=== PATIENT | male | born 1975 ===

== ENCOUNTER 2017-02-25 00:05 | Emergency (ER) | payer SELFPAY ==
[2017-02-25] MEDS ORDERED: Sodium Chloride 0.9% 1,000 ML IV STA ×2 (00:44→02:18)
--- NOTE | 2017-02-25 00:58 | ED PDOC ---
Lower Extremity Pain/Injury Time Seen by Provider: 02/25/17 00:27 Chief Complaint (Nursing): Chest Pain Chief Complaint (Provider): Numbness to bl feet History Per: Patient History/Exam Limitations: no limitations Onset/Duration Of Symptoms: Days Current Symptoms Are (Timing): Still Present Additional Complaint(s): The patient is a 41yo male, no known past medical history, presents to the ED for evaluation of bilateral lower extremity numbness, present for the past month , with associated chest tightness earlier today. Patient reports presenting today because he is concerned his symptoms are indicative of diabetes. He denies any other medical complaints. Surgical history: Right ear polyp removal Past Medical History Reviewed: Historical Data, Nursing Documentation, Vital Signs Vital Signs: Last Vital Signs Temp 97.8 F 02/25/17 00:25 Pulse 86 02/25/17 00:25 Resp 16 02/25/17 00:25 BP 124/68 02/25/17 00:25 Pulse Ox 98 02/25/17 00:25 - Medical History PMH: No Chronic Diseases - Surgical History Other surgeries: polyp removal from right ear - Family History Family History: States: Diabetes - Social History Current smoker - smoking cessation education provided: No Alcohol: None Drugs: Denies - Home Medications Home Medications: Ambulatory Orders Medication Instructions Recorded MetFORMIN [glucoPHAGE] 1,000 mg PO BID #14 tab 02/25/17 - Allergies Allergies/Adverse Reactions: Allergies Allergy/AdvReac Type Severity Reaction Status Date / Time No Known Allergies Allergy Verified 02/25/17 00:24 Review of Systems ROS Statement: Except As Marked, All Systems Reviewed And Found Negative Cardiovascular: Positive for: Chest Pain (chest tightness) Musculoskeletal: Positive for: Other (bilateral lower extremity weakness) Physical Exam - Reviewed Nursing Documentation Reviewed: Yes Vital Signs Reviewed: Yes - Physical Exam Appears: Positive for: Well, Non-toxic, No Acute Distress Head Exam: Positive for: ATRAUMATIC, NORMAL INSPECTION, NORMOCEPHALIC Skin: Positive for: Normal Color, Warm, DRY Eye Exam: Positive for: Normal appearance Neck: Positive for: Normal, Supple Cardiovascular/Chest: Positive for: Regular Rate, Rhythm Respiratory: Positive for: Normal Breath Sounds. Negative for: Respiratory Distress Extremity: Positive for: Normal ROM. Negative for: Pedal Edema, Calf Tenderness , Deformity, Swelling Neurologic/Psych: Positive for: Alert, Oriented. Negative for: Motor/Sensory Deficits - Laboratory Results Result Diagrams: 02/25/17 01:13 02/25/17 01:13 - ECG O2 Sat by Pulse Oximetry: 98 (RA) Pulse Ox Interpretation: Normal Medical Decision Making Medical Decision Making: Time: 39 Impression: 41y/o male with bilateral foot numbness and hyperglycemia per accucheck Plan: -- Labs -- IV Fluids -- EKG Reassess Labs reviewed show no clinically significant abnormalities with exception of elevated blood glucose; Patient blood glucose improved sig after IV fluids and Metformin. Pt presentation c/w withy new onset DM. All results and significance explained to patient who will follow up in clinic in 2 days. Patoient discharged on Metformin. Dx New inset DM Stable Scribe Attestation: Documented by Maryellen Chen acting as a scribe for Roger Garcia MD. Provider Attestation: All medical record entries made by the Scribe were at my direction and personally dictated by me. I have reviewed the chart and agree that the record accurately reflects my personal performance of the history, physical exam, medical decision making, and the department course for this patient. I have also personally directed, reviewed, and agree with the discharge instructions and disposition. Disposition - Clinical Impression Clinical Impression: Diabetes mellitus - Patient ED Disposition Is Patient to be Admitted: No Counseled Patient/Family Regarding: Studies Performed, Diagnosis, Need For Followup, Rx Given - Disposition Referrals: [facility] [Outside] Disposition: Routine/Home Disposition Time: 02:30 Condition: STABLE Prescriptions: MetFORMIN [glucoPHAGE] 1,000 mg PO BID #14 tab Instructions: Diabetes Mellitus Type 2 in Adults (ED) Forms: [employer] (Lithuanian)
[2017-02-25 01:17] LABS: BASO # 0.1 K/uL (0.0-0.2); BASO % 1.1 % (0.0-2.0); EOS # 0.1 K/uL (0.0-0.7); EOS % 1.3 % (0.0-4.0); HEMATOCRIT 45.8 % (35.0-51.0); LYMPH # 3.1 K/uL (1.0-4.3); LYMPH % 51.8 % (20.0-40.0); MEAN CELL VOLUME 90.7 fl (80.0-94.0); MEAN CORPUSCULAR HEMOGLOBIN 30.9 pg (27.0-31.0); MEAN CORPUSCULAR HGB CONC 34.1 g/dL (33.0-37.0); MONO # 0.5 K/uL (0.0-0.8); MONO % 7.8 % (0.0-10.0); NEUT # 2.3 K/uL (1.8-7.0); NRBC % 0.1 % (0.0-0.0); RED CELL DISTRIBUTION WIDTH 13.4 % (11.5-14.5); WHITE BLOOD COUNT 6.1 K/uL (4.8-10.8)
[2017-02-25 01:26] LABS: ALB/GLOB RATIO 1.3 (1.0-2.1); ALKALINE PHOSPHATASE 97 U/L (38-126); ALT/SGPT 40 U/L (21-72); AST/SGOT 19 U/L (17-59); BILIRUBIN,TOTAL 0.4 mg/dl (0.2-1.3); BLOOD UREA NITROGEN 14 mg/dl (9-20); CALCIUM 9.7 mg/dL (8.4-10.2); CARBON DIOXIDE 29 mmol/L (22-30); CHLORIDE 97 mmol/L (98-107); GFR AFRICAN-AMERICAN > 60; GLUCOSE,RANDOM 345 mg/dL (75-110); POTASSIUM 4.5 MMOL/L (3.6-5.0); SODIUM 138 mmol/l (132-148); TOTAL PROTEIN 7.3 G/DL (6.3-8.2)
[2017-02-25 04:55] VITALS: BP 125/74; PULSE 82; RESP 17; TEMP 98; O2SAT 99
[2017-02-25 08:33] LABS: RBC URINE 4 /hpf (0-3); URINE BILIRUBIN NEGATIVE (NEGATIVE); URINE BLOOD NEGATIVE (NEGATIVE); URINE COLOR YELLOW (YELLOW); URINE GLUCOSE (UA) >=500 mg/dL (Normal); URINE KETONE TRACE mg/dL (NEGATIVE); URINE LEUKOCYTE ESTERASE SMALL Leu/uL (Negative); URINE PROTEIN NEGATIVE (NEGATIVE); URINE UROBILINOGEN 0.2-1.0 mg/dL (0.2-1.0); WBC URINE 3 /hpf (0-5)
--- NOTE | 2017-02-25 11:21 | CARD ---
APPROVED REPORT EKG Measurement Heart [id number] <Conclusion> Normal sinus rhythm Normal ECG
== END 2017-02-25 04:07 | disposition home or self-care (01) ==
LOC: H.ER 00:05
DX: E11.9 Type 2 diabetes mellitus without complications (principal)
CPT/HCPCS: 80053; 81003; 82948; 83036; 84484; 85025; 93005; 96360; 96361; 99285; J7040